=== PATIENT | male | born 1955 | race Caucasian/White ===

== ENCOUNTER 2019-08-30 12:44 | Emergency (ER) | payer BC ==
[2019-08-30 13:49] VITALS: BP 135/79
--- NOTE | 2019-08-30 14:04 | UC ---
Bite Injury/Animal HPI - HPI Summary HPI Summary: patient was bitten by his pet cat yesterday left second finger he cleansed wound but over next 24h his wound has become swollen, red and over past few hours red streaks are running up L arm. he denies fever/chills, malaise , no drainage - History of Current Complaint Chief Complaint: UCUpperExtremity Stated Complaint: CAT BITE Time Seen by Provider: 08/30/19 13:57 Hx Obtained From: Patient Severity Currently: Mild Severity Initially: Mild Pain Intensity: 1 Onset/Duration: Sudden Onset Type of Bite: Pet Has Animal Been Immunized?: Yes Character: Puncture Aggravating Factor(s): Nothing Alleviating Factor(s): Nothing Associated Signs And Symptoms: Positive: Erythema, Swelling. Negative: Fever, Drainage Animal Available for Observation: Yes Animal Control Notified: No - Allergies/Home Medications Allergies/Adverse Reactions: Allergies Allergy/AdvReac Type Severity Reaction Status Date / Time ampicillin Allergy Intermediate Rash Verified 08/30/19 13:49 Cephalosporins Allergy Intermediate Rash Verified 08/30/19 13:49 Penicillins Allergy Intermediate Rash Verified 08/30/19 13:49 Sulfa (Sulfonamide Allergy Intermediate Rash Verified 08/30/19 13:49 Antibiotics) PMH/Surg Hx/FS Hx/Imm Hx Previously Healthy: Yes - Surgical History Surgical History: Yes Surgery Procedure, Year, and Place: cervical discectomy C6/C7 WITH PLATE, CIRCUMCISION - Family History Known Family History: Positive: None, Non-Contributory - Social History Occupation: Retired Lives: With Family Alcohol Use: Occasionally Alcohol Amount: 32 oz beer/day Substance Use Type: None Smoking Status (MU): Never Smoked Tobacco - Immunization History Vaccination Up to Date: No Review of Systems All Other Systems Reviewed And Are Negative: Yes Constitutional: Positive: Negative. Negative: Fever, Chills Respiratory: Positive: Negative Cardiovascular: Positive: Negative Neurovascular: Positive: Negative Musculoskeletal: Positive: Decreased ROM - L index finger d/t swelling Psychological: Positive: Negative Is Patient Immunocompromised?: No Physical Exam Triage Information Reviewed: Yes Appearance: Well-Appearing, No Pain Distress, Well-Nourished Vital Signs: Initial Vital Signs Temp 98.9 F 08/30/19 13:46 Pulse 89 08/30/19 13:46 Resp 12 08/30/19 13:46 BP 135/79 08/30/19 13:46 Pulse Ox 98 08/30/19 13:46 Vital Signs Reviewed: Yes Respiratory Exam: Normal Respiratory: Positive: Lungs clear Cardiovascular Exam: Normal Cardiovascular: Positive: RRR Musculoskeletal: Positive: ROM Limited @ - L index finger d/t swelling Neurological Exam: Normal Psychological Exam: Normal Skin: Positive: Other - L index finger has 2-3 PWm, swelling, redness, no drainage. tehre is red streaking up R arm Bite Injury Course/Dx - Differential Dx/Diagnosis Differential Diagnosis/HQI/PQRI: Cellulitis, Puncture, Other Provider Diagnosis: Cat bite of index finger, Cellulitis Discharge ED - Sign-Out/Discharge Documenting (check all that apply): Patient Departure All imaging exams completed and their final reports reviewed: No Studies - Discharge Plan Condition: Stable Disposition: HOME Prescriptions: levoFLOXacin [Levofloxacin] 750 mg PO DAILY #10 tablet metroNIDAZOLE [Metronidazole] 500 mg PO TID #21 tablet Patient Education Materials: Animal Bite (ED) Referrals: Geremias Whitaker MD [Primary Care Provider] - 2 Days (wound recheck and last tetanus ) Additional Instructions: keep area clean and dry. start antibiotics today and take as directed Please report to emergency room if you develop a fever, chills or increasing redness, swelling pain - Billing Disposition and Condition Condition: STABLE Disposition: Home
[2019-08-30] MEDS ORDERED: Tetan/Diph/Pertus SYR(Tdap)* 0.5 ML SYR(BOOSTRIX) use SYR contains LATEX IM ONE (14:27)
== END 2019-08-30 14:48 | disposition home or self-care (01) ==
LOC: UCEAST 12:44
DX: S61.251A Open bite of left index finger without damage to nail, initial encounter (principal); L03.012 Cellulitis of left finger; Z88.0 Allergy status to penicillin; Z88.1 Allergy status to other antibiotic agents; Z88.2 Allergy status to sulfonamides; Z23 Encounter for immunization; W55.01XA Bitten by cat, initial encounter; Y92.9 Unspecified place or not applicable
CPT/HCPCS: 90471; 90715; 99212; G0463

== ENCOUNTER 2019-09-03 11:05 | Emergency (ER) | payer BC ==
--- NOTE | 2019-09-03 14:03 | ED ---
Bite Injury/Animal - HPI Summary HPI Summary: 64 year old M presenting to [facility] with a chief complaint of intermittent erythema to his left arm secondary to a cat bite since 5 days ago, worse since yesterday. The patient rates the pain 1/10 in severity. Symptoms aggravated by nothing. Symptoms alleviated by nothing. The patient reports some clear discharge after picking off a scab today. Patient reports that he was seen at urgent care 4 days ago and was prescribed antibiotics. He states that the redness was resolved 2 days ago and returned yesterday. Patient denies any fever. Medication list reviewed. Allergy list reviewed. Home Medications Medication Instructions Recorded Confirmed Type Hydrocodone/Ibuprofen 7.5 - 200 tab PO Q8H PRN 09/07/17 08/30/19 History [Hydrocodone-Ibuprofen 10-200] levoFLOXacin [Levofloxacin] 750 mg PO DAILY #10 tablet 08/30/19 Rx metroNIDAZOLE [Metronidazole] 500 mg PO TID #21 tablet 08/30/19 Rx Ibuprofen 800 mg PO SEE INSTRUCTIONS PRN 09/03/19 09/03/19 History - History of Current Complaint Chief Complaint: EDAnimalBite Stated Complaint: CAT BITE PER PT Time Seen by Provider: 09/03/19 13:55 Hx Obtained From: Patient Onset of Injury: Happened days ago, Still Present Type of Bite: Animal - Cat Severity Currently: Mild Pain Intensity: 1 Pain Scale Used: 0-10 Numeric Character: Puncture Associated Signs And Symptoms: Positive: Erythema. Negative: Fever Animal Available for Observation: No - Allergies/Home Medications Allergies/Adverse Reactions: Allergies Allergy/AdvReac Type Severity Reaction Status Date / Time ampicillin Allergy Intermediate Rash Verified 09/03/19 11:12 Cephalosporins Allergy Intermediate Rash Verified 09/03/19 11:12 Penicillins Allergy Intermediate Rash Verified 09/03/19 11:12 Sulfa (Sulfonamide Allergy Intermediate Rash Verified 09/03/19 11:12 Antibiotics) Home Medications: Home Medications Hydrocodone/Ibuprofen [Hydrocodone-Ibuprofen 10-200] 7.5 - 200 tab PO Q8H PRN [History Confirmed 09/03/19] levoFLOXacin [Levofloxacin] 750 mg PO DAILY #10 tablet 08/30/19 [Rx Confirmed ] metroNIDAZOLE [Metronidazole] 500 mg PO TID #21 tablet 08/30/19 [Rx Confirmed ] Azithromycin TAB* [Zithromax TAB (Z-PHYLLIS) 250 mg #6 tabs] 2 tab PO .TODAY, THEN 1 DAILY #1 phyllis 09/03/19 [Rx] Ibuprofen 800 mg PO SEE INSTRUCTIONS PRN 09/03/19 [History Confirmed 09/03/19] PMH/Surg Hx/FS Hx/Imm Hx Endocrine/Hematology History: Denies: Hx Diabetes Cardiovascular History: Denies: Hx Hypertension, Hx Pacemaker/ICD Respiratory History: Denies: Hx Asthma Musculoskeletal History: Reports: Hx Arthritis, Hx Back Problems, Hx Orthopedic Injury - Torn cartiledge both knees, Hx Tendonitis Sensory History: Reports: Hx Contacts or Glasses Denies: Hx Hearing Aid Opthamlomology History: Reports: Hx Contacts or Glasses Neurological History: Comment Only: Other Neuro Impairments/Disorders - PAIN CLINIC PATIENT Psychiatric History: Reports: Hx Anxiety Denies: Hx Panic Disorder - Surgical History Surgery Procedure, Year, and Place: cervical discectomy C6/C7 WITH PLATE, CIRCUMCISION Infectious Disease History: No Infectious Disease History: Denies: Traveled Outside the [place] in Last 30 Days - Family History Known Family History: Positive: Cardiac Disease - Social History Alcohol Use: Occasionally Alcohol Amount: 32 oz beer/day Substance Use Type: Reports: None Smoking Status (MU): Never Smoked Tobacco Review of Systems Negative: Fever Positive: Other - Left arm redness Positive: Other - Puncture to left second finger All Other Systems Reviewed And Are Negative: Yes Physical Exam - Summary Physical Exam Summary: Constitutional: Well-developed, Well-nourished, Alert. (-) Distressed Skin: Warm, Dry; left second finger puncture tad just proximal to PIP joint, finger is swollen but the patient is able to move it, no purulent drainage expressed, streaking redness just distal to elbow to mid-arm with palpated cord present. HENT: Normocephalic; Atraumatic Eyes: Conjunctiva normal Neck: Musculoskeletal ROM normal neck. (-) JVD, (-) Stridor, (-) Tracheal deviation Cardio: Rhythm regular, rate normal, Heart sounds normal; Intact distal pulses; Radial pulses are 2+ and symmetric. (-) Murmur Pulmonary/Chest wall: Effort normal. (-) Respiratory distress, (-) Wheezes, (-) Rales Abd: Soft, (-) tenderness, (-) Distension, (-) Guarding, (-) Rebound Musculoskeletal: (-) Edema Lymph: (-) Cervical adenopathy Neuro: Alert, Oriented x3 Psych: Mood and affect Normal Triage Information Reviewed: Yes Vital Signs On Initial Exam: Initial Vitals Temp Pulse Resp BP Pulse Ox 97.5 F 86 18 139/93 98 09/03/19 11:06 09/03/19 11:06 09/03/19 11:06 09/03/19 11:06 09/03/19 11:06 Vital Signs Reviewed: Yes Procedures - Sedation Patient Received Moderate/Deep Sedation with Procedure: No Diagnostics - Vital Signs Vital Signs Temp Pulse Resp BP Pulse Ox 09/03/19 12:55 98.7 F 80 18 148/87 96 09/03/19 11:06 97.5 F 86 18 139/93 98 - Laboratory Result Diagrams: 09/03/19 14:10 09/03/19 14:10 Lab Statement: Any lab studies that have been ordered have been reviewed, and results considered in the medical decision making process. - Radiology Venous Doppler Study Radiology Interpretation Completed By: Radiologist Summary of Radiographic Findings: NO LEFT UPPER EXTREMITY DEEP VEIN THROMBOSIS. ED physician has reviewed this report. - Ultrasound LUE US Ultrasound Interpretation Completed By: Radiologist Summary of Ultrasound Findings: IMPRESSION: NO LEFT UPPER EXTREMITY DEEP VEIN THROMBOSIS. THIS REPORT WAS REVIEWED BY ED PHYSICIAN. Bite Injury Course/Dx - Course Course Of Treatment: Patient is here with a possible Scratch disease. Patient was bit by a cat on Sunday. Patient started on levofloxacin and Flagyl as he has multiple antibiotic allergies. Patient initially was getting better but did start getting worse. Patient streaking redness up his arm. Patient has no signs or symptoms of systemic infection. Patient will formation or ptosis no known history of PE. Given patient's venous cord in his arm, a DVT study was performed which was negative. Patient will continue taking his antibiotics but was started on azithromycin for possible Bartonella coverage - Diagnoses Provider Diagnosis: Acute lymphangitis, Cat bite Discharge ED - Sign-Out/Discharge Documenting (check all that apply): Patient Departure - discharge - Discharge Plan Condition: Stable Disposition: HOME Prescriptions: Azithromycin TAB* [Zithromax TAB (Z-PHYLLIS) 250 mg #6 tabs] 2 tab PO .TODAY, THEN 1 DAILY #1 phyllis Patient Education Materials: Animal Bite (ED), Lymphangitis (ED) Referrals: Geremias Whitaker MD [Primary Care Provider] - 3 Days Additional Instructions: CONTINUE TAKING YOUR PRESCRIBED ANTIBIOTICS IN ADDITION TO YOUR NEWLY PRESCRIBED ANTIBIOTIC. FOLLOW UP WITH YOUR PRIMARY CARE PHYSICIAN IN 1-3 DAYS TO RE-CHECK THE INFECTION. PLEASE RETURN TO ED IF THE SWELLING WORSENS, IF YOU EXPERIENCE FEVER OR CHILLS OR ANY OTHER CONCERNING SYMPTOMS. - Billing Disposition and Condition Condition: STABLE Disposition: Home - Attestation Statements Document Initiated by Luke: Yes Documenting Scribe: Yareli Gilliland Provider For Whom Luke is Documenting (Include Credential): Rohit Moreno MD Scribe Attestation: Yareli Trujillo, scribed for Rohit Moreno MD on at [id number]. Scribe Documentation Reviewed: Yes Provider Attestation: The documentation as recorded by the luke, Yareli Gilliland accurately reflects the service I personally performed and the decisions made by me, Rohit Moreno MD Status of Scribe Document: Viewed
[2019-09-03 14:31] LABS: ABS Eosinophils 0.1 10^3/ul (0-0.6); ABS Lymphocytes 1.2 10^3/ul (1.0-4.8); ABS Monocytes 0.4 10^3/ul (0-0.8); ABS Neutrophils 3.8 10^3/ul (1.5-7.7); Eosinophil % 1.1 %; Hematocrit 41 % (42-52); Hemoglobin 13.8 g/dL (14.0-18.0); Mean Corpuscular HGB Conc 34 g/dL (31-36); Mean Corpuscular Hemoglobin 32 pg (27-31); Mean Corpuscular Volume 94 fL (80-94); Mean Platelet Volume 8.4 fL (7.4-10.4); Platelet Count 205 10^3/uL (150-450); Red Blood Count 4.32 10^6 /uL (4.18-5.48); Red Cell Distribution Width 13 % (10-15); White Blood Count 5.6 10^3/uL (3.5-10.8)
[2019-09-03 14:49] LABS: Albumin 5.1 g/dL (3.2-5.2); Albumin/Globulin Ratio 1.8 (1-3); BUN/Creatinine Ratio 18.2 (8-20); C Reactive Protein 7.36 mg/L (<8.01); EGFR African American 92.4 (>60); EGFR Non-African American 76.3 (>60); Globulin 2.8 g/dL (2-4); Potassium 3.9 mmol/L (3.5-5.0); Total Bilirubin 0.4 mg/dL (0.2-1.0); Total Protein 7.9 g/dL (6.4-8.9)
[2019-09-03 15:33] VITALS: BP 132/83
== END 2019-09-03 16:01 | disposition home or self-care (01) ==
LOC: ED 11:05
DX: L03.91 Acute lymphangitis, unspecified (principal); S41.152A Open bite of left upper arm, initial encounter; W55.01XA Bitten by cat, initial encounter; Y92.9 Unspecified place or not applicable; F41.9 Anxiety disorder, unspecified; Z79.899 Other long term (current) drug therapy; Z88.0 Allergy status to penicillin; Z88.1 Allergy status to other antibiotic agents; Z88.2 Allergy status to sulfonamides
CPT/HCPCS: 36415; 80053; 85025; 86140; 99282